=== PATIENT | male | born 1980 | race American Indian/Alaskan Native ===

== ENCOUNTER 2021-01-23 16:15 | Emergency (ER) | payer SELFPAY ==
[2021-01-23] MEDS ORDERED: Naloxone 2 MG/2 ML Syringe IVPUSH ONE (16:31)
[2021-01-23] MEDS ORDERED: Sodium Chloride 0.9% 1,000 ML IV ONE (16:31)
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
[2021-01-23] MEDS ORDERED: LORazepam 2 MG/ML SDV IVPUSH ONE (16:42)
[2021-01-23 18:08] LABS: ANION GAP 16.2 mEq/L (7-13); CHLORIDE,CL 111 mmol/L (98-107); SODIUM,NA 149 mmol/L (136-145)
[2021-01-23] MEDS ORDERED: MVI, Adult with Vitamin K 10 ML, Thiamine 100 MG, Folic Acid 1 MG in Lactated Ringers 1... IV ONE ×4 (18:44)
== END 2021-01-23 21:18 ==
LOC: DL.ED 16:15
DX: F10.129 Alcohol abuse with intoxication, unspecified (principal); F15.10 Other stimulant abuse, uncomplicated; Y90.8 Blood alcohol level of 240 mg/100 ml or more
CPT/HCPCS: 36415; 80053; 80305; 80307; 83735; 85025; 96365; 96375; 99283; 99285; J2060; J2310; J3411; J7030; J7120; J3490